=== PATIENT | female | born 1965 | race Caucasian/White ===

== ENCOUNTER 2019-04-04 16:07 | Emergency (ER) | payer OTHER, SELFPAY ==
[2019-04-04 16:15] VITALS: BP 164/86; PULSE 69; RESP 18; TEMP 36.9; O2SAT 100
[2019-04-04 16:55] VITALS: BP 143/87; BP 144/86; BP 146/90; PULSE 58; PULSE 66; PULSE 74
[2019-04-04 17:09] LABS: Alanine Aminotransferase 26 IU/L (9-52); Albumin 4.5 g/dL (3.5-5.0); Albumin Globulin Ratio 1.5 (1.0-2.8); Alkaline Phosphatase 100 U/L (38-126); Aspartate Aminotransferase 25 IU/L (14-36); Bilirubin Total 0.5 mg/dL (0.2-1.3); Blood Urea Nitrogen 16 mg/dL (7-17); Calcium 9.1 mg/dL (8.4-10.2); Carbon Dioxide 28 mmol/L (22-32); Chloride 101 mmol/L (98-107); Creatine Kinase 57 U/L (30-135); Estimated Glomerular Filt Rate > 60.0 mL/min (>60); Glucose 85 mg/dL (70-100); HEMOLYSIS < 15 (0-50); Potassium 3.4 mmol/L (3.4-5.1); Sodium 138 mmol/L (137-145); Total Protein 7.5 g/dL (6.3-8.2)
[2019-04-04 17:10] LABS: Add Manual Diff / Slide Review NO; Basophils Absolute Auto 0 /uL (0-100); Basophils Percent Auto 0.8 % (0-2); Eosinophils Absolute Auto 200 /uL (0-450); Eosinophils Percent Auto 3.6 % (2-4); Hematocrit 38.9 % (36-46); Hemoglobin 13.3 g/dL (12.0-16.0); Lymphocytes Absolute Auto 1700 /uL (1100-4500); Lymphocytes Percent Auto 31.7 % (25-40); Mean Corpuscular HGB Conc 34.2 % (30-36); Mean Corpuscular Hemoglobin 30.7 PG (26-34); Mean Corpuscular Volume 89.6 fL (80-100); Monocytes Absolute Auto 500 /uL (0-900); Monocytes Percent Auto 9.2 % (3-14); Neutrophils Absolute Auto 2900 /uL (1500-7000); Neutrophils Percent Auto 54.7 % (50-75); Platelet Count 268 X10^3/uL (150-400); Red Blood Cell Count 4.35 X10^6/uL (4.0-5.2); White Blood Cell Count 5.3 X10^3/uL (4.5-11.0)
[2019-04-04 17:20] LABS: Troponin I < 0.012 ng/mL (0.01-0.034)
[2019-04-04 17:30] VITALS: BP 145/80; PULSE 61; RESP 14; O2SAT 100
--- NOTE | 2019-04-04 18:28 | DI.CT.S_ITS ---
PROCEDURE: CT HEAD/BRAIN WO CON INDICATIONS: vertigo TECHNIQUE: Noncontrast 4.5 mm thick angled axial sections acquired from the foramen magnum to the vertex, with coronal and sagittal reformats. For radiation dose reduction, the following was used: automated exposure control, adjustment of mA and/or kV according to patient size. COMPARISON: None. FINDINGS: Image quality: Excellent. CSF spaces: Basal cisterns are patent. No extra-axial fluid collections. Ventricles are normal in size and shape. Brain: No midline shift. No intracranial masses or hemorrhage. Alcaraz-white matter interface is normal. Skull and face: Calvarium and visualized facial bones are intact, without suspicious lesions. Sinuses: Visualized sinuses and mastoids are clear. IMPRESSION: No CT evidence of acute intracranial pathology. Dictated by: Mingo Paniagua M.D. on 04/04/2019 at 19:04 Approved by: Mingo Paniagua M.D. on 04/04/2019 at 19:04
[2019-04-04 18:31] VITALS: BP 136/81; PULSE 59; RESP 13; O2SAT 100
--- NOTE | 2019-04-06 20:09 | ED.DIZZY ---
HPI - Dizziness General Chief Complaint: Dizziness Stated Complaint: left knee buckled/dizzy/[id number] Time Seen by Provider: 04/04/19 16:54 Source: patient Mode of arrival: ambulatory Limitations: no limitations History of Present Illness HPI Narrative: Patient comes emergency department complaining of an episode of dizziness at work. 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 Patient denies any other symptoms at the same time. She denies any visual changes or focal weakness. No difficulty with speaking or swallowing. Patient states that the vertigo lasted for approximately 10 or 15 minutes, then slowly resolved. Patient states that she is feeling almost completely better now, but just feels little tired. No nausea or vomiting with the episode. Patient states something similar happened 3 days ago. She states that she was walking out of a store, when she stepped off a curb, and her knee buckled. The patient states that she large to the side and had to grab onto a car that was nearby to balance herself. Just after the buckling of the knee and the lower chin, the patient suddenly felt as though she could not balance and that she was spinning. Patient states she had to stand holding on to the car, and that the rn recruitment of the car got out and helped her to sit down. Patient states she remained sitting for some time, until she felt well enough to drive, and then she was able to go home. Patient states that she felt tired for the rest of the day, but had no further episodes of dizziness. She states that the next day and until the episode today, she felt fine. The patient states she has never had any issues with fainting or vertigo previously. She states she has strong and healthy otherwise. She has no history of any issues prior with prolonged neck flexion at her job. Patient denies any chest pain or shortness of breath associated with these episodes. No weakness, numbness, or tingling. Patient states she is active, and has never had trouble with dizziness, lightheadedness, or shortness of breath with exercise. Patient has no history of hypertension or diabetes. No coronary artery disease. No recent history of head injury. No family history of aneurysms. No other complaints at this time. Related Data Home Medications Medication Instructions Recorded Confirmed minocycline 50 mg PO DAILY 04/04/19 04/04/19 Allergies Allergy/AdvReac Type Severity Reaction Status Date / Time No Known Drug Allergies Allergy Verified 04/04/19 16:20 Review of Systems Constitutional Denies chills, Denies fever(s), Denies lethargy and Denies weakness Comments: ?Tiredness? Eyes Denies change in vision, Denies eye discharge, Denies irritation and Denies loss of vision ENT Ears, Nose, Mouth, and Throat: Reports vertigo Cardiovascular Denies chest pain, Denies irregular heart rhythm, Denies lightheadedness, Denies palpitations, Denies dyspnea, Denies dyspnea on exertion and Denies orthopnea Respiratory Denies cough, Denies dyspnea, Denies dyspnea on exertion and Denies wheezing Gastrointestinal Gastrointestinal: Denies abdominal pain, Denies change in bowel habits, Denies diarrhea, Denies nausea and Denies vomiting Genitourinary Denies hematuria, Denies flank pain, Denies urinary incontinence and Denies urinary urgency Musculoskeletal Denies back pain, Denies muscle weakness, Denies numbness and Denies tingling Integumentary/Breasts Denies pruritus, Denies erythema, Denies rash and Denies wounds Neurologic Denies confusion, Reports vertigo, Denies loss of vision, Denies numbness, Denies tingling and Denies weakness Psychiatric Denies anxiety, Denies confusion, Denies depression, Denies homicidal ideation and Denies suicidal ideation Endocrine Denies palpitations Hematologic/Lymphatic Denies easy bruising Allergic/Immunologic Denies wheezing [facility] Medical History Healthy adult (Acute) Surgical History No pertinent past surgical history (Acute) Social History Smoking Status: Never smoker Social History Smoking Status: Never smoker Exam Initial Vital Signs Initial Vital Signs: Vital Signs Temperature 98.4 F 04/04/19 16:15 Pulse Rate 69 04/04/19 16:15 Respiratory Rate 18 04/04/19 16:15 Blood Pressure 164/86 H 04/04/19 16:15 Pulse Oximetry 100 04/04/19 16:15 Const General: cooperative and well developed Nutritional Appearance: well nourished Orientation: alert, awake, oriented x3 and not confused [facility] Head: normocephalic and atraumatic Ears: external ears normal Nose: external nose normal and No nasal discharge Face and sinus: face symmetric and No dry mucous membranes Mouth: oral mucosae normal and moist mucous membranes Teeth and gingiva: dentition normal Eyes General: appearance normal, both eyes and all related structures Eyelids: eyelids normal Conjunctivae: conjunctivae normal Sclera: sclerae normal Pupils: PERRL EOM: EOM intact bilaterally Neck Neck: normal visual inspection, trachea midline, No lymphadenopathy, No midline deformity and No JVD Lymphatic: No lymphedema Chest Chest: normal inspection of the chest Resp Effort & Inspection: normal respiratory effort, able to speak in complete sentences, no respiratory distress and no use of accessory muscles Auscultation: clear to auscultation bilaterally, no rales, no rhonchi and no wheezes Cardio Rate: regular rate Rhythm: regular rhythm Heart Sounds: no click, no gallops, no murmurs and no rubs Pulses: normal peripheral pulses GI Inspection: non-distended Palpation: soft, no hepatosplenomegaly, No guarding, No pulsatile mass and No tender Auscultation: normal bowel sounds Back/Spine/Pelvis Back: No CVA tenderness Cervical Spine: cervical ROM normal and No pain with cervical ROM Thoracic/Lumbar Spine: thoracic and lumbar spine normal to inspection Skin General: no rashes or lesions noted, No jaundice and No petechiae Neuro General: alert, awake, oriented x3, gait normal and no focal motor deficits Cranial Nerves: CN's II-XI intact bilaterally Speech: speech normal Extrem General: full ROM, no clubbing, cyanosis or edema, no pedal edema and no calf tenderness Psych Appearance: well kempt Mental Status: mental status grossly normal Attitude: cooperative Thought Content: normal and suicidality Judgment: judgment good Course Course Narrative: Patient was extremely well-appearing in the emergency department, but based on recurrent symptoms, was worked up with laboratory studies and head CT. The patient opted not have IV fluids, as she drinks a lot of water, and was not nauseated. The patient is workup was completely negative, and patient, other than feeling a little bit tired, was completely asymptomatic in the emergency department. I did have a long discussion with the patient and her family about possible causes for the patient's symptoms. I suspect, given the positional nature of both episodes, as well as the short-lived nature of the symptoms and lack of neurologic symptoms otherwise, that this is most likely a case of peripheral vertigo. We have discussed the need for follow-up, as well as the usual indications for return. We have discussed that Holter monitoring may be helpful for the patient, potentially followed by MRI, if patient continues to have symptoms. She may ultimately need to have Neurology and ENT follow-up, but at this point, we have also discussed that the symptoms may never happen again. [facility] - Dizziness Medical Records Attestation: I reviewed the patient's medical records. Lab Data Attestation: I reviewed the patient's lab results. Result diagrams: 04/04/19 16:45 04/04/19 16:45 Lab Results 04/04/19 04/04/19 Range/Units 16:45 16:45 WBC 5.3 (4.5-11.0) X10^3/uL RBC 4.35 (4.0-5.2) X10^6/uL Hgb 13.3 (12.0-16.0) g/dL Hct 38.9 (36-46) % MCV 89.6 (80-100) fL MCH 30.7 (26-34) PG MCHC 34.2 (30-36) % RDW 13.0 (11.6-14.8) % Plt Count 268 (150-400) X10^3/uL Neut % (Auto) 54.7 (50-75) % Lymph % (Auto) 31.7 (25-40) % [place] % (Auto) 9.2 (3-14) % Eos % (Auto) 3.6 (2-4) % Baso % (Auto) 0.8 (0-2) % Neut # (Auto) 2900 (4426-6019) /uL Lymph # (Auto) 1700 (2987-5564) /uL [place] # (Auto) 500 (0-900) /uL Eos # (Auto) 200 (0-450) /uL Baso # (Auto) 0 (0-100) /uL Sodium 138 (137-145) mmol/L Potassium 3.4 (3.4-5.1) mmol/L Chloride 101 (98-107) mmol/L Carbon Dioxide 28 (22-32) mmol/L BUN 16 (7-17) mg/dL Creatinine 0.80 (0.52-1.04) mg/dL Estimated GFR > 60.0 (>60) mL/min BUN/Creatinine Ratio 20.0 (6-22) Glucose 85 (70-100) mg/dL Calcium 9.1 (8.4-10.2) mg/dL Total Bilirubin 0.5 (0.2-1.3) mg/dL AST 25 (14-36) IU/L ALT 26 (9-52) IU/L Alkaline Phosphatase 100 (38-126) U/L Total Creatine Kinase 57 (30-135) U/L CK-MB (CK-2) TNP CK-MB (CK-2) Rel Index TNP Troponin I < 0.012 (0.01-0.034) ng/mL Total Protein 7.5 (6.3-8.2) g/dL Albumin 4.5 (3.5-5.0) g/dL Globulin 3.0 (1.7-4.1) g/dL Albumin/Globulin Ratio 1.5 (1.0-2.8) Point of Care Testing Glucose POC [address] scan - head: Radiologist's impression: [place] [address] CT Scan Report Signed Patient: Carole Aguilera RMR#: [id number] : 1965Acct:[id number] Age/Sex: 54 / FDate of Service: 04/04/19 Loc: ED Accession Number: [id number] Procedure: CT head/brain wo con Ordering Provider: Gloria Greene MD PROCEDURE: CT HEAD/BRAIN WO CON INDICATIONS: vertigo TECHNIQUE: Noncontrast 4.5 mm thick angled axial sections acquired from the foramen magnum to the vertex, with coronal and sagittal reformats. For radiation dose reduction, the following was used: automated exposure control, adjustment of mA and/or kV according to patient size. COMPARISON: None. FINDINGS: Image quality: Excellent. CSF spaces: Basal cisterns are patent. No extra-axial fluid collections. Ventricles are normal in size and shape. Brain: No midline shift. No intracranial masses or hemorrhage. Alcaraz-white matter interface is normal. Skull and face: Calvarium and visualized facial bones are intact, without suspicious lesions. Sinuses: Visualized sinuses and mastoids are clear. IMPRESSION: No CT evidence of acute intracranial pathology. Dictated by: Mingo Paniagua M.D. on 04/04/2019 at 19:04 Approved by: Mingo Paniagua M.D. on 04/04/2019 at 19:04 ECG Data Attestation: I personally reviewed and interpreted this ECG as follows: (See below) Interpretation: Twelve lead EKG performed April 04, 2019, at 4:26 p.m., as follows: Regular ventricular rhythm with a rate of 67 beats per minute ND interval 158 milliseconds QRS duration 93 millisecond QTC interval [address] T wave changes No ectopy Interpretation: Normal sinus rhythm; no sense of acute ischemia; normal EKG as interpreted by ED MD. Discharge Plan Departure Patient Disposition: Home Clinical Impression: Vertigo Discharge Date/Time: 04/04/19 19:26 Interventions: ED Discharge Assessment Last Done: 04/04/19 19:25 Instructions: DI for Vertigo Activity Restrictions/Additional Instructions: Your labs and CT scan looked good, as does your EKG. No identifiable reason for your vertigo has been found today. You will need to follow up with your primary doctor to discuss having a Holter monitor evaluation. You may also need MRI of your brain, should you have further episodes of this. However, at this time, there is no evidence of an emergent condition causing your symptoms. Please call your doctor for the next available appointment. Prescriptions: No Action minocycline 50 mg Tablet 50 mg PO DAILY RF: 0
--- NOTE | 2019-04-06 20:13 | ED_ITS ---
HPI - Dizziness General Chief Complaint: Dizziness Stated Complaint: left knee buckled/dizzy/[id number] Time Seen by Provider: 04/04/19 16:54 Source: patient Mode of arrival: ambulatory Limitations: no limitations History of Present Illness HPI Narrative: Patient comes emergency department complaining of an episode of dizziness at work. 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 Patient denies any other symptoms at the same time. She denies any visual changes or focal weakness. No difficulty with speaking or swallowing. Patient states that the vertigo lasted for approximately 10 or 15 minutes, then slowly resolved. Patient states that she is feeling almost completely better now, but just feels little tired. No nausea or vomiting with the episode. Patient states something similar happened 3 days ago. She states that she was walking out of a store, when she stepped off a curb, and her knee buckled. The patient states that she large to the side and had to grab onto a car that was nearby to balance herself. Just after the buckling of the knee and the lower chin, the patient suddenly felt as though she could not balance and that she was spinning. Patient states she had to stand holding on to the car, and that the fly rail operator of the car got out and helped her to sit down. Patient states she remained sitting for some time, until she felt well enough to drive, and then she was able to go home. Patient states that she felt tired for the rest of the day, but had no further episodes of dizziness. She states that the next day and until the episode today, she felt fine. The patient states she has never had any issues with fainting or vertigo previously. She states she has strong and healthy otherwise. She has no history of any issues prior with prolonged neck flexion at her job. Patient denies any chest pain or shortness of breath associated with these episodes. No weakness, numbness, or tingling. Patient states she is active, and has never had trouble with dizziness, lightheadedness, or shortness of breath with exercise. Patient has no history of hypertension or diabetes. No coronary artery disease. No recent history of head injury. No family history of aneurysms. No other complaints at this time. Related Data Home Medications Medication Instructions Recorded Confirmed minocycline 50 mg PO DAILY 04/04/19 04/04/19 Allergies Allergy/AdvReac Type Severity Reaction Status Date / Time No Known Drug Allergies Allergy Verified 04/04/19 16:20 Review of Systems Constitutional Denies chills, Denies fever(s), Denies lethargy and Denies weakness Comments: ?Tiredness? Eyes Denies change in vision, Denies eye discharge, Denies irritation and Denies loss of vision ENT Ears, Nose, Mouth, and Throat: Reports vertigo Cardiovascular Denies chest pain, Denies irregular heart rhythm, Denies lightheadedness, Denies palpitations, Denies dyspnea, Denies dyspnea on exertion and Denies orthopnea Respiratory Denies cough, Denies dyspnea, Denies dyspnea on exertion and Denies wheezing Gastrointestinal Gastrointestinal: Denies abdominal pain, Denies change in bowel habits, Denies diarrhea, Denies nausea and Denies vomiting Genitourinary Denies hematuria, Denies flank pain, Denies urinary incontinence and Denies urinary urgency Musculoskeletal Denies back pain, Denies muscle weakness, Denies numbness and Denies tingling Integumentary/Breasts Denies pruritus, Denies erythema, Denies rash and Denies wounds Neurologic Denies confusion, Reports vertigo, Denies loss of vision, Denies numbness, Denies tingling and Denies weakness Psychiatric Denies anxiety, Denies confusion, Denies depression, Denies homicidal ideation and Denies suicidal ideation Endocrine Denies palpitations Hematologic/Lymphatic Denies easy bruising Allergic/Immunologic Denies wheezing [facility] Medical History Healthy adult (Acute) Surgical History No pertinent past surgical history (Acute) Social History Smoking Status: Never smoker Social History Smoking Status: Never smoker Exam Initial Vital Signs Initial Vital Signs: Vital Signs Temperature 98.4 F 04/04/19 16:15 Pulse Rate 69 04/04/19 16:15 Respiratory Rate 18 04/04/19 16:15 Blood Pressure 164/86 H 04/04/19 16:15 Pulse Oximetry 100 04/04/19 16:15 Const General: cooperative and well developed Nutritional Appearance: well nourished Orientation: alert, awake, oriented x3 and not confused [facility] Head: normocephalic and atraumatic Ears: external ears normal Nose: external nose normal and No nasal discharge Face and sinus: face symmetric and No dry mucous membranes Mouth: oral mucosae normal and moist mucous membranes Teeth and gingiva: dentition normal Eyes General: appearance normal, both eyes and all related structures Eyelids: eyelids normal Conjunctivae: conjunctivae normal Sclera: sclerae normal Pupils: PERRL EOM: EOM intact bilaterally Neck Neck: normal visual inspection, trachea midline, No lymphadenopathy, No midline deformity and No JVD Lymphatic: No lymphedema Chest Chest: normal inspection of the chest Resp Effort & Inspection: normal respiratory effort, able to speak in complete se ntences, no respiratory distress and no use of accessory muscles Auscultation: clear to auscultation bilaterally, no rales, no rhonchi and no wheezes Cardio Rate: regular rate Rhythm: regular rhythm Heart Sounds: no click, no gallops, no murmurs and no rubs Pulses: normal peripheral pulses GI Inspection: non-distended Palpation: soft, no hepatosplenomegaly, No guarding, No pulsatile mass and No tender Auscultation: normal bowel sounds Back/Spine/Pelvis Back: No CVA tenderness Cervical Spine: cervical ROM normal and No pain with cervical ROM Thoracic/Lumbar Spine: thoracic and lumbar spine normal to inspection Skin General: no rashes or lesions noted, No jaundice and No petechiae Neuro General: alert, awake, oriented x3, gait normal and no focal motor deficits Cranial Nerves: CN's II-XI intact bilaterally Speech: speech normal Extrem General: full ROM, no clubbing, cyanosis or edema, no pedal edema and no calf tenderness Psych Appearance: well kempt Mental Status: mental status grossly normal Attitude: cooperative Thought Content: normal and suicidality Judgment: judgment good Course Course Narrative: Patient was extremely well-appearing in the emergency department, but based on recurrent symptoms, was worked up with laboratory studies and head CT. The patient opted not have IV fluids, as she drinks a lot of water, and was not nauseated. The patient is workup was completely negative, and patient, other than feeling a little bit tired, was completely asymptomatic in the emergency department. I did have a long discussion with the patient and her family about possible causes for the patient's symptoms. I suspect, given the positional nature of both episodes, as well as the short-lived nature of the symptoms and lack of neurologic symptoms otherwise, that this is most likely a case of peripheral vertigo. We have discussed the need for follow-up, as well as the usual indications for return. We have discussed that Holter monitoring may be helpful for the patient, potentially followed by MRI, if patient continues to have symptoms. She may ultimately need to have Neurology and ENT follow-up, but at this point, we have also discussed that the symptoms may never happen again. [facility] - Dizziness Medical Records Attestation: I reviewed the patient's medical records. Lab Data Attestation: I reviewed the patient's lab results. Result diagrams: 04/04/19 16:45 04/04/19 16:45 Lab Results 04/04/19 04/04/19 Range/Units 16:45 16:45 WBC 5.3 (4.5-11.0) X10^3/uL RBC 4.35 (4.0-5.2) X10^6/uL Hgb 13.3 (12.0-16.0) g/dL Hct 38.9 (36-46) % MCV 89.6 (80-100) fL MCH 30.7 (26-34) PG MCHC 34.2 (30-36) % RDW 13.0 (11.6-14.8) % Plt Count 268 (150-400) X10^3/uL Neut % (Auto) 54.7 (50-75) % Lymph % (Auto) 31.7 (25-40) % [place] % (Auto) 9.2 (3-14) % Eos % (Auto) 3.6 (2-4) % Baso % (Auto) 0.8 (0-2) % Neut # (Auto) 2900 (5679-3485) /uL Lymph # (Auto) 1700 (8309-8867) /uL [place] # (Auto) 500 (0-900) /uL Eos # (Auto) 200 (0-450) /uL Baso # (Auto) 0 (0-100) /uL Sodium 138 (137-145) mmol/L Potassium 3.4 (3.4-5.1) mmol/L Chloride 101 (98-107) mmol/L Carbon Dioxide 28 (22-32) mmol/L BUN 16 (7-17) mg/dL Creatinine 0.80 (0.52-1.04) mg/dL Estimated GFR > 60.0 (>60) mL/min BUN/Creatinine Ratio 20.0 (6-22) Glucose 85 (70-100) mg/dL Calcium 9.1 (8.4-10.2) mg/dL Total Bilirubin 0.5 (0.2-1.3) mg/dL AST 25 (14-36) IU/L ALT 26 (9-52) IU/L Alkaline Phosphatase 100 (38-126) U/L Total Creatine Kinase 57 (30-135) U/L CK-MB (CK-2) TNP CK-MB (CK-2) Rel Index TNP Troponin I < 0.012 (0.01-0.034) ng/mL Total Protein 7.5 (6.3-8.2) g/dL Albumin 4.5 (3.5-5.0) g/dL Globulin 3.0 (1.7-4.1) g/dL Albumin/Globulin Ratio 1.5 (1.0-2.8) Point of Care Testing Glucose POC [address] scan - head: Radiologist's impression: [place] [address] CT Scan Report Signed Patient: Carole Aguilera RMR#: [id number] : 1965Acct:[id number] Age/Sex: 54 / FDate of Service: 04/04/19 Loc: ED Accession Number: [id number] Procedure: CT head/brain wo con Ordering Provider: Gloria Greene MD PROCEDURE: CT HEAD/BRAIN WO CON INDICATIONS: vertigo TECHNIQUE: Noncontrast 4.5 mm thick angled axial sections acquired from the foramen magnum to the vertex, with coronal and sagittal reformats. For radiation dose reduction, the following was used: automated exposure control, adjustment of mA and/or kV according to patient size. COMPARISON: None. FINDINGS: Image quality: Excellent. CSF spaces: Basal cisterns are patent. No extra-axial fluid collections. Ventricles are normal in size and shape. Brain: No midline shift. No intracranial masses or hemorrhage. Alcaraz-white matter interface is normal. Skull and face: Calvarium and visualized facial bones are intact, without suspicious lesions. Sinuses: Visualized sinuses and mastoids are clear. IMPRESSION: No CT evidence of acute intracranial pathology. Dictated by: Mingo Paniagua M.D. on 04/04/2019 at 19:04 Approved by: Mingo Paniagua M.D. on 04/04/2019 at 19:04 ECG Data Attestation: I personally reviewed and interpreted this ECG as follows: (See below) Interpretation: Twelve lead EKG performed April 04, 2019, at 4:26 p.m., as follows: Regular ventricular rhythm with a rate of 67 beats per minute VT interval 158 milliseconds QRS duration 93 millisecond QTC interval [address] T wave changes No ectopy Interpretation: Normal sinus rhythm; no sense of acute ischemia; normal EKG as interpreted by ED MD. Discharge Plan Departure Patient Disposition: Home Clinical Impression: Vertigo Discharge Date/Time: 04/04/19 19:26 Interventions: ED Discharge Assessment Last Done: 04/04/19 19:25 Instructions: DI for Vertigo Activity Restrictions/Additional Instructions: Your labs and CT scan looked good, as does your EKG. No identifiable reason for your vertigo has been found today. You will need to follow up with your primary doctor to discuss having a Holter monitor evaluation. You may also need MRI of your brain, should you have further episodes of this. However, at this time, there is no evidence of an emergent condition causing your symptoms. Please call your doctor for the next available appointment. Prescriptions: No Action minocycline 50 mg Tablet 50 mg PO DAILY RF: 0
== END 2019-04-04 19:26 | disposition home or self-care (01) ==
PROVIDERS: Emergency Provider Emergency Medicine
DX: R42 Dizziness and giddiness (principal); R03.0 Elevated blood-pressure reading, without diagnosis of hypertension
CPT/HCPCS: 36415; 70450; 80053; 82550; 82962; 84484; 85025; 93005; 99283; 99285